=== PATIENT | male | born 1970 | race African-American/Black ===

== ENCOUNTER 2018-02-04 22:10 | Emergency (ER) | payer OTHER, SELFPAY ==
[2018-02-04 22:11] VITALS: BP 140/72; PULSE 72; RESP 18; TEMP 36.9; O2SAT 98; BMI 32.3
--- NOTE | 2018-02-04 22:32 | ED.DCSUM_ITS ---
- ER Visit Summary Date of Service: 02/04/18 Chief Complaint: Bee sting left upper back History of Present Illness: The patient is a 47 M bee sting reaction starting at 7 PM this evening while mowing the lawn. Started on left upper back, 45 minutes noted left facial swelling. States scratchy throat. However note dyspnea or trouble swallowing. No medications taken. Has had bee sting in the past, states at that time had multiple stings about 5-6 years ago therefore unclear was anaphylaxis. He does have an epinephrine pen and did not use it. States symptoms seem to be improving, however significant other wanted him evaluated. History of hypertension. Physical Examination: General: Alert and oriented ?3, no acute distress HEENT: Normocephalic, atraumatic. Moist mucosa membranes. No objective lip or tongue swelling. Mild swelling left maxillary region. Nontender. No erythema. Airway patent. No stridor. Neck: supple, nontender. Cardiovascular: Regular rate and rhythm, no murmurs Respiratory: Normal breath sounds, symmetric, no distress Abdomen: Soft, nontender, nondistended Extremities: Nontender, no edema, pulses intact ?4 Neuro: no focal neurological deficits. Skin: Left upper back lower trapezius noted patchy erythema, 1 small area urticaria, there is no stinger present. No drainage. Test Results: [] Emergency Department Course and Treatment: Patient vitals stable, no trouble swallowing or dyspnea. Treated oral Pepcid, prednisone, Benadryl, he is monitored. Reevaluation had improving of symptoms. Did not feel epinephrine was required. Patient will be placed on a 5 day treatment for allergic reaction. Prescriptions are written including epinephrine pen. Ice was placed on his localized reaction. Treatment Plan: [] Disposition: Discharge Impression: Allergic reaction to bee sting This note was generated with [employer] dictation software. It may contain incorrect words, spelling, and punctuation that were not noted in review of the chart prior to signing ED Disposition - Plan for ED Patient: Disposition: Home or Assisted Living Chief Complaint: Allergic Reaction Diagnosis: Allergic reaction to bee sting Instructions: ED Bite Sting Insect Gen Allergic React Prescriptions: Epinephrine [Epi Pen] 0.3 mg IM X1 PRN #2 pkg PRN Reason: allergic reaction Prednisone [Deltasone] 60 mg PO DAILY #12 tablet Famotidine [Pepcid] 20 mg PO BID #10 tablet Referrals: NOT,DEFINED [Primary Care Provider] - Additional Instructions: follow up with your doctor in 5-7 days
[2018-02-04] MEDS: predniSONE 20 MG Tablet 60 MG PO (22:48)
[2018-02-04] MEDS: DiphenhydrAMINE 25 MG Capsule PO (22:48)
[2018-02-04] MEDS: Famotidine 20 MG Tablet PO (22:48)
[2018-02-04 23:35] VITALS: BP 118/82; PULSE 63; RESP 16
== END 2018-02-04 23:36 | disposition home or self-care (01) ==
PROVIDERS: Emergency Provider Emergency Medicine
DX: T63.441A Toxic effect of venom of bees, accidental (unintentional), initial encounter (principal); R22.0 Localized swelling, mass and lump, head; L50.9 Urticaria, unspecified; Y92.9 Unspecified place or not applicable; I10 Essential (primary) hypertension; Z79.899 Other long term (current) drug therapy
CPT/HCPCS: 99283